=== PATIENT | male | born 1940 | race Caucasian/White ===

== ENCOUNTER 2019-12-01 15:02 | Emergency (ER) | payer MEDICARE, OTHER ==
[~2019-12-01] VITALS: Ht 177.8 cm; Wt 88.6 kg
[2019-12-01] MEDS ORDERED: NS IV 1000 ML 1,000 ML IV SCH ×2 (15:31→17:45)
[2019-12-01] MEDS ORDERED: ACETAMINOPHEN 325 MG TABLET PO ONE (15:45)
[2019-12-01] MEDS ORDERED: cefTRIAXone FOR IV USE 1,000 MG in WATER (STERILE) FOR INJECTION 10 ML IV ONE (15:45)
[2019-12-01 15:53] LABS: BACTERIA,URINE NEGATIVE /HPF; BILIRUBIN,URINE NEGATIVE (NEGATIVE); CLARITY,URINE CLEAR; COLOR,URINE YELLOW; GLUCOSE, URINE (UA) NEGATIVE (NEGATIVE); KETONES,URINE NEGATIVE (NEGATIVE); LEUKOCYTE ESTERASE ,URINE NEGATIVE (NEGATIVE); NITRITE,URINE NEGATIVE (NEGATIVE); PH,URINE 5.5 (5-9); PROTEIN,URINE NEGATIVE (NEGATIVE); RBC,URINE 0-2 /HPF; SQUAMOUS EPITHELIAL CELL,UR 0-2 /HPF; WBC,URINE RARE /HPF
--- NOTE | 2019-12-01 16:07 | Diagnostic Imaging Report ---
INDICATION: Weakness. Febrile. Covid 19 positive. EXAMINATION: Portable chest. FINDINGS: There is mild cardiomegaly. A pacemaker is present with the battery on the left. The lungs are well-aerated and clear. There are no infiltrates. No pneumothorax or pleural effusion. IMPRESSION: Mild cardiomegaly without evidence of acute change. No previous study for comparison. Dictated by: Dictated on workstation # [id number]
[2019-12-01 16:38] LABS: HEMATOCRIT 43 % (40-54); HEMOGLOBIN 13.8 G/DL (13.3-17.7); MEAN CORPUSCULAR HEMOGLOBIN 30 PG (25-34); MEAN CORPUSCULAR HGB CONC 32 G/DL (32-36); MEAN CORPUSCULAR VOLUME 93 FL (80-99); PLATELET COUNT 116 10^3/uL (130-400); RED CELL DISTRIBUTION WIDTH 13.4 % (10.0-14.5); WHITE BLOOD COUNT 14.7 10^3/uL (4.3-11.0)
[2019-12-01 16:39] LABS: BASOPHILS % (AUTO) 0 % (0-10); EOSINOPHILS % (AUTO) 0 % (0-10); LYMPHOCYTES # (AUTO) 0.8 X 10^3 (1.0-4.0); LYMPHOCYTES % (AUTO) 6 % (12-44); MONOCYTES % (AUTO) 7 % (0-12); NEUTROPHILS # (AUTO) 12.8 X 10^3 (1.8-7.8); NEUTROPHILS % (AUTO) 87 % (42-75)
[2019-12-01 16:56] LABS: BAND NEUTROPHILS 8 %; BASOPHILS % (MANUAL) 0 %; EOSINOPHILS % (MANUAL) 0 %; LYMPHOCYTES % (MANUAL) 5 %; MONOCYTES % (MANUAL) 4 %; NEUTROPHILS % (MANUAL) 83 %
[2019-12-01 17:05] LABS: CHLORIDE 102 MMOL/L (98-107); SODIUM 135 MMOL/L (135-145)
[2019-12-01 17:06] LABS: ALANINE AMINOTRANSFERASE 22 U/L (0-55); ALBUMIN 4.1 GM/DL (3.2-4.5); ALKALINE PHOSPHATASE 111 U/L (40-136); BILIRUBIN,TOTAL 1.6 MG/DL (0.1-1.0); BUN/CREATININE RATIO 22; CALCIUM 9.1 MG/DL (8.5-10.1); CARBON DIOXIDE 19 MMOL/L (21-32); CREATININE SERUM 0.85 MG/DL (0.60-1.30); GFR ESTIMATED > 60; GLUCOSE 113 MG/DL (70-105); TOTAL PROTEIN 7.1 GM/DL (6.4-8.2)
--- NOTE | 2019-12-01 17:25 | ED General ---
General Chief Complaint: Neurological Problems Stated Complaint: WEAKNESS History of Present Illness Date Seen by Provider: Dec 01, 2019 Time Seen by Provider: 15:30 Initial Comments The patient is an 79-year-old male with a history of hypertension, hy perlipidemia, coronary artery disease status post stenting. He has an ICD in place. He presents for evaluation of generalized weakness/fatigue in association with measured fevers at home over the last 2 days. Patient states he has just felt very fatigued over the last couple of days. He denies any other focal or specific symptoms and specifically denies nausea or vomiting, headache, focal or lateralizing weakness, numbness, tingling, neck stiffness/pain/meningismus, vision changes, shortness of breath or chest pain of any kind, abdominal pain, flank pain, back pain, dysuria or hematuria, changes in bowel habits. Patient is alert and oriented 4 and pleasantly and appropriately interactive and moves all extremities equally and is in absolutely no acute distress upon initial assessment here in the emergency department. Vital signs are appropriate here aside from fever with a measured rectal temperature of 38.9 Celsius. Patient is on a beta kanu so this would be expected to suppress a possible tachycardic response to infection. Allergies and Home Medications Allergies Coded Allergies: No Known Drug Allergies (Unverified , 12/01/19) Patient Home Medication List Home Medication List Reviewed: Yes Review of Systems Review of Systems Constitutional: see HPI All Other Systems Reviewed Negative Unless Noted: Yes (Negative excepted noted.) Past Dxhzrnl-Ncnstm-Qtyhrw Hx Past Med/Social Hx: Reviewed Nursing Past Med/Soc Hx Patient Social History Alcohol Use: Denies Use Recreational Drug Use: No Smoking Status: Former Smoker Type Used: Cigarettes Former Smoker, Quit: May 11, 1997 2nd Hand Smoke Exposure: No Recent Hopitalizations: No Physical Abuse: No Sexual Abuse: No Mistreated: No Fear: No Seasonal Allergies Seasonal Allergies: No Past Medical History Surgeries: Yes Cardiac Respiratory: No Cardiac: Yes Heart Attack, High Cholesterol, Hypertension Neurological: No Genitourinary: No Gastrointestinal: No Musculoskeletal: No Endocrine: No HEENT: No Cancer: No Psychosocial: No Integumentary: No Blood Disorders: No Family Medical History Reviewed Nursing Family Hx Physical Exam Vital Signs Capillary Refill : Height, Weight, BMI Height: '" Weight: lbs. oz. kg; BMI Method: General Appearance: No Apparent Distress Comments This is an elderly male appearing nontoxic and in no acute distress. Head is normocephalic and atraumatic. Neck is supple and nontender and patient is able to range his neck fully in all dimensions without discomfort or distress. Oropharynx is moist. Lungs are clear to auscultation at all stations. There is a normal S1 and S2 without rubs or gallops and capillary refill is appropriate, less than 2 seconds globally. Abdomen is soft, nontender and nondistended. Examination of the back reveals no erythema, warmth, swelling, tenderness, skin breakdown or other abnormalities. Skin is warm and dry without cyanosis, clubbing or edema. Psychiatrically, the patient demonstrates appropriate mood and affect and is alert. Neurologically, cranial nerves II through XII are intact and there are no lateralizing deficits noted. Speech is normal. Language is normal. Coordination is normal. There is no dysmetria with omlgcj-tw-gsde or qcfs-de-flqv bilaterally. Strength is 5 out of 5 in all joints of bilateral upper and lower extreme use. Sensation is intact to light touch in bilateral upper and lower extremities. Ambulation testing is deferred. The patient is alert and oriented 4. Examination of bilateral upper and lower extremities reveals no erythema, warmth, swelling, skin breakdown, tenderness or other acute abnormality; BUEs and BLEs are neurovascularly intact distally with 2+ pulses noted. Genitourinary examination is unremarkable. Focused Exam Lactate Level 12/01/19 16:50: Lactic Acid Level Laboratory Tests Test 12/01/19 16:50 Progress/Results/Core Measures Suspected Sepsis SIRS Temperature: Pulse: Respiratory Rate: Laboratory Tests 12/01/19 16:25: White Blood Count 14.7H Blood Pressure / Mean: 12/01/19 16:50: Laboratory Tests 12/01/19 16:25: Creatinine 0.85, Platelet Count 116L, Total Bilirubin 1.6H Results/Orders Lab Results Laboratory Tests Test 12/01/19 15:15 12/01/19 16:08 12/01/19 16:25 12/01/19 16:50 Range/Units Urine Color YELLOW Urine Clarity CLEAR Urine pH 5.5 5-9 Urine Specific [place] 1.025 H 1.016-1.022 Urine Protein NEGATIVE NEGATIVE Urine Glucose (UA) NEGATIVE NEGATIVE Urine Ketones NEGATIVE NEGATIVE Urine Nitrite NEGATIVE NEGATIVE Urine Bilirubin NEGATIVE NEGATIVE Urine Urobilinogen 0.2 < = 1.0 MG/DL Urine Leukocyte Esterase NEGATIVE NEGATIVE Urine RBC (Auto) 2+ H NEGATIVE Urine RBC 0-2 /HPF Urine WBC RARE /HPF Urine Squamous Epithelial Cells 0-2 /HPF Urine Crystals NONE /LPF Urine Bacteria NEGATIVE /HPF Urine Casts NONE /LPF Urine Mucus SMALL H /LPF Urine Culture Indicated NO White Blood Count 14.7 H 4.3-11.0 10^3/uL Red Blood Count 4.57 4.35-5.85 10^6/uL Hemoglobin 13.8 13.3-17.7 G/DL Hematocrit 43 40-54 % Mean Corpuscular Volume 93 80-99 FL Mean Corpuscular Hemoglobin 30 25-34 PG Mean Corpuscular Hemoglobin Concent 32 32-36 G/DL Red Cell Distribution Width 13.4 10.0-14.5 % Platelet Count 116 L 130-400 10^3/uL Mean Platelet Volume 12.0 H 7.4-10.4 FL Neutrophils (%) (Auto) 87 H 42-75 % Lymphocytes (%) (Auto) 6 L 12-44 % Monocytes (%) (Auto) 7 0-12 % Eosinophils (%) (Auto) 0 0-10 % Basophils (%) (Auto) 0 0-10 % Neutrophils # (Auto) 12.8 H 1.8-7.8 X 10^3 Lymphocytes # (Auto) 0.8 L 1.0-4.0 X 10^3 Monocytes # (Auto) 1.0 0.0-1.0 X 10^3 Eosinophils # (Auto) 0.0 0.0-0.3 10^3/uL Basophils # (Auto) 0.0 0.0-0.1 10^3/uL Neutrophils % (Manual) 83 % Lymphocytes % (Manual) 5 % Monocytes % (Manual) 4 % Eosinophils % (Manual) 0 % Basophils % (Manual) 0 % Band Neutrophils 8 % Sodium Level 135 135-145 MMOL/L Potassium Level 4.0 3.6-5.0 MMOL/L Chloride Level 102 98-107 MMOL/L Carbon Dioxide Level 19 L 21-32 MMOL/L Anion Gap 14 5-14 MMOL/L Blood Urea Nitrogen 19 H 7-18 MG/DL Creatinine 0.85 0.60-1.30 MG/DL Estimat Glomerular Filtration Rate > 60 BUN/Creatinine Ratio 22 Glucose Level 113 H 70-105 MG/DL Calcium Level 9.1 8.5-10.1 MG/DL Corrected Calcium 9.0 8.5-10.1 MG/DL Total Bilirubin 1.6 H 0.1-1.0 MG/DL Aspartate Amino Transf (AST/SGOT) 34 5-34 U/L Alanine Aminotransferase (ALT/SGPT) 22 0-55 U/L Alkaline Phosphatase 111 40-136 U/L Troponin I < 0.30 <0.30 NG/ML Total Protein 7.1 6.4-8.2 GM/DL Albumin 4.1 3.2-4.5 GM/DL My Orders Orders - MAYNOR RAMSEY MD Cbc With Automated Diff (12/01/19 15:31) Comprehensive Metabolic Panel (12/01/19 15:31) Troponin I Fs (12/01/19 15:31) Ekg Tracing (12/01/19 15:31) Chest 1 View Ap/Pa Only (12/01/19 15:31) Lactic Acid Analyzer (12/01/19 15:31) Blood Culture (12/01/19 15:31) Ua Culture If Indicated (12/01/19 15:31) Coronavirus Sars-Cov-2 So 2018 (12/01/19 15:31) Ed Iv/Invasive Line Start (12/01/19 15:31) Ns Iv 1000 Ml (Sodium Chloride 0.9%) (12/01/19 15:31) Acetaminophen Tablet/Caplet (Tylenol T (12/01/19 15:45) Ceftriaxone For Iv Use (Rocephin For I (12/01/19 15:45) Manual Differential (12/01/19 16:25) Blood Culture (12/01/19 17:01) Vital Signs/I&O Capillary Refill : Progress Note : Time: 17:26 Progress Note Well-appearing but rather comorbid community dwelling male without hospital associated infection risk factors who presents for 2 days of generalized weakness and fatigue in association with fevers at home. No clear focal symptoms to suggest a source for infection. Patient does have a leukocytosis to 15,000 and I suspect he would be tachycardic as well as febrile if not beta blocked. Have covered for sepsis with a dose of Rocephin after blood and urine cultures and an IV fluid bolus. Patient does seem and in medically stable and resting comfortably upon reassessment. Given age, comorbidities and likely sepsis, will require admission. Patient and family request that he be admitted to [facility] as that is closer to their house and then [facility]. The patient is therefore graciously accepted in transfer for admission to that facility by Dr. Dodson. Patient has been swabbed for COVID, though no clear respiratory symptoms to suggest COVID as the primary process at this time. ECG EKG : Comment Sinus rhythm, rate 60, no acute ST elevation or depression, WI 172, QRS 112, QTC 420, EP interpretation. Diagnostic Imaging Comments EXAMINATION: Portable chest. FINDINGS: There is mild cardiomegaly. A pacemaker is present with the battery on the left. The lungs are well-aerated and clear. There are no infiltrates. No pneumothorax or pleural effusion. IMPRESSION: Mild cardiomegaly without evidence of acute change. No previous study for comparison. Dictated on workstation # [id number] Departure Impression Primary Impression: Sepsis Additional Impressions: Fever Other fatigue Disposition: XFER T-[facility] Condition: Stable Transfer Transfer Reason: Patient preference Transfer Progress Notes Patient and his family understand that we have the necessary services to take care of him at [facility]. They continue to request [facility] as it is closer to their house. Therefore, the patient is graciously accepted in transfer to that facility by Dr. Dodson. Transfer Facility: [facility] Method of Transfer: EMS MAYNOR RAMSEY MD Dec 01, 2019 17:25
--- OUTSIDE RECORDS SUMMARY | 2019-12-01 17:55 | XMS REPORT ---
Author Author Christiano CARTER Organization [facility] Address [address] [address] Care Team Providers Care Master Pilot Name Role Phone MORRIS CARTER Unavailable PROBLEMS Type Condition ICD9-CM Code ZXP99-MP Code Onset Dates Condition S tatus SNOMED Code Problem Essential hypertension I10 Active 08221213 Problem Acquired hypothyroidism E03.9 Active 400023870 Problem Hypercholesterolemia E78.00 Active 50184044 Problem Chronic systolic (congestive) heart failure I50.22 Active 780385026 Problem terminal gauger (current) use of 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 Z79.01 Active 369099390 Problem Paroxysmal atrial fibrillation I48.0 Active 334401912 Problem Pure hypercholesterolemia E78.00 Acti ve 718502619 Problem 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 903025569 Problem Obstructive sleep apnea (adult) (pediatric) G47.33 Active 01977753 Problem Prostate CA C61 Active 94473732 3 ALLERGIES No Information ENCOUNTERS Encounter Location Date Diagnosis [place] [address] [place], [place] [id number] [place] [phone] September, [place] [address] [place] [phone] Jul, [place] [address] [place] [phone] Jul, USP (current) use of anticoagulant s Z79.01 [place] [address] [place] [phone] Jul, Encounter for Medicare annual wellness e xam Z00.00 ; Essential hypertension I10 ; Hypercholesterolemia E78.00 ; Obstructive sleep apnea (adult) (pediatric) G47.33 ; Prostate CA C61 ; 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 [address] [facility] [id number] [place] [phone] Jun, [facility] [address] [place], [place] [id number] [place] [phone] Jun, [place] [address] [place] [id number] [place] [phone] Jun, Cellulitis of left lower extremity L03.1 16 and USP (current) use of 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 Z79.01 [place] [address] [place] [id number] [place] [phone] 13 May, 2019 Pain in right hip M25.551 [place] [address] [place] [id number] [place] [phone] 10 May, 2019 Pain in right hip M25.551 ; Closed fract ure of one rib of left side, initial encounter S22.32XA and Pain in left hip M25.552 [facility] [address] [id number] [place] [address] 09 May, 2019 Hip pain M25.559 and Rib pain R07.81 [place] [address] [place], [place] [id number] [place] [phone] May, Rib pain R07.81 and Hip pain M25.559 [place] [address] [place], [place] [id number] [place] [phone] Apr, [place] [address] [place] [id number] [place] [phone] Apr, USP (current) use of anticoagulant s Z79.01 [place] [address] [place] [id number] [place] [phone] Apr, [place] [address] [place] [phone] Apr, Obstructive sleep apnea (adult) (pediatr ic) G47.33 and 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 [facility] [address] [place] [phone] Mar, Essential hypertension I10 [facility] [address] [place] [phone] Mar, Prostate CA C61 and USP (current) use of 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 Z79.01 [facility] [address] [place] [address], [place] [address] Feb, terminal gauger (current) use of anticoagulant s Z79.01 [place] [address] [place] [phone] Feb, terminal gauger (current) use of anticoagulant s Z79.01 [facility] [address] [place] [address], [place] [address] Feb, [facility] [address] [place] [address], [place] [address] Jan, USP (current) use of anticoagulant s Z79.01 [facility] [address] [place] [phone] Jan, [facility] [address] [place] [address] Jan, High risk medication use Z79.899 ; Obstr uctive sleep apnea (adult) (pediatric) G47.33 ; terminal gauger (current) use of 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 Z79.01 and Acquired hypothyroidism E03.9 [facility] [address] [place] [phone] Dec, terminal gauger (current) use of anticoagulant s Z79.01 [facility] [address] [place] [phone] Nov, [facility] [address] [facility] [address] [place] [phone] Nov, [facility] [id number] [place] [phone] 15 Nov, 2018 USP (current) use of anticoagulant s Z79.01 [facility] [id number] [place] [phone] 19 Oct, 2018 [facility] [id number] [place] [phone] 12 Oct, 2018 Obstructive sleep apnea (adult) (pediatr ic) G47.33 [facility] [id number] [place] [phone] 11 Oct, 2018 USP (current) use of anticoagulant s Z79.01 [facility] [address] [place] [phone] 10 Oct, 2018 HLD (hyperlipidemia) E78.5 and Fatigue R 53.83 [place] [address] [place] [phone] 07 Oct, 2018 Fatigue R53.83 ; HLD (hyperlipidemia) E7 8.5 ; 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 and Obstructive sleep apnea (adult) (pediatric) G47.33 [facility] [id number] [place] [phone] 04 Oct, 2018 USP (current) use of anticoagulant s Z79.01 [facility] [id number] [place] [phone] September, [facility] [id number] [place] [phone] September, [facility] [id number] [place] [phone] September, [facility] [address] [place] [address] September, terminal gauger (current) use of anticoagulant s Z79.01 [facility] [id number] [place] [phone] Aug, terminal gauger (current) use of anticoagulant s Z79.01 [facility] [address] [id number] [place] [address] Aug, [facility] [id number] [place] [address], [place] [address] Aug, USP (current) use of anticoagulant s Z79.01 [facility] [address] [id number] [place] [address] Aug, terminal gauger (current) use of anticoagulant s Z79.01 [facility] [id number] [place] [address], [place] [address] Aug, terminal gauger (current) use of anticoagulant s Z79.01 [facility] [id number] [place] [address], [place] [address] Jul, terminal gauger (current) use of anticoagulant s Z79.01 [facility] [address] [id number] [place] [address] Jul, terminal gauger (current) use of anticoagulant s Z79.01 [facility] [id number] [place] [address], [place] [address] Jul, terminal gauger (current) use of anticoagulant s Z79.01 [facility] [id number] [place] [address], [place] [address] Jul, terminal gauger (current) use of anticoagulant s Z79.01 [facility] [address] [id number] [place] [address] Jul, USP (current) use of anticoagulant s Z79.01 [facility] [address] [id number] [place] [address] Jul, High risk medication use Z79.899 and Jonathan g term (current) use of 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 Z79.01 [facility] [address] [id number] [place] [address] Jul, [facility] [id number] [place] [address], [place] [address] Jul, [facility] [id number] [place] [address], [place] [address] Jul, [facility] [id number] [place] [phone] Jun, terminal gauger (current) use of anticoagulant s Z79.01 [facility] [id number] [place] [phone] Jun, terminal gauger (current) use of anticoagulant s Z79.01 [facility] [id number] [place] [address], [place] [address] Jun, terminal gauger (current) use of anticoagulant s Z79.01 [facility] [id number] [place] [address], [place] [address] Jun, [facility] [id number] [place] [phone] Jun, [facility] [id number] [place] [address], [place] [id number] May, USP (current) use of anticoagulant s Z79.01 [facility] [id number] [place] [address], [place] [address] May, Essential hypertension I10 ; Acquired hy pothyroidism E03.9 and Pure hypercholesterolemia E78.00 [facility] [id number] [place] [phone] May, USP (current) use of anticoagulant s Z79.01 [facility] [id number] [place] [phone] May, terminal gauger (current) use of anticoagulant s Z79.01 ; Acquired hypothyroidism E03.9 ; Hypercholesterolemia E78.00 and Essential hypertension I10 [facility] [id number] [place] [address] May, terminal gauger (current) use of anticoagulant s Z79.01 [facility] [id number] [place] [phone] May, USP (current) use of anticoagulant s Z79.01 IMMUNIZATIONS No Known Immunizations SOCIAL HISTORY Never Assessed REASON FOR VISIT INR PLAN OF CARE VITAL SIGNS MEDICATIONS Unknown Medications RESULTS Name Result Date Reference Range INR (IN HOUSE) INR 3.6 1.10 - 3.30 PREVIOUS INR 2.8 CURRENT COUMADIN DOSE NEW COUMADIN DOSE Lot # [id number] Exp date 08/09/2019 PROCEDURES Procedure Date Ordered Result Body Site PROTHROMBIN TIME August 09, 2018 INSTRUCTIONS MEDICATIONS ADMINISTERED No Known Medications MEDICAL (GENERAL) HISTORY Type Description Date Medical History hypertension Medical History prostate cancer Medical History hyperlipidemia Medical History CAD
--- OUTSIDE RECORDS SUMMARY | 2019-12-01 17:55 | XMS REPORT ---
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 Z79.01 Active 514964368 Problem Paroxysmal atrial fibrillation I48.0 Active 380597582 Problem Pure hypercholesterolemia E78.00 Acti ve 057672902 Problem 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 217792342 Problem Obstructive sleep apnea (adult) (pediatric) G47.33 Active 87177468 Problem Prostate CA C61 Active 19178241 3 ALLERGIES No Information ENCOUNTERS Encounter Location Date Diagnosis [place] [address] [place] [address] 14634-701 9 September, [facility] [address] [place] [address] [phone] 9 Jul, Encounter for Medicare annual wellness exam Z00.00 ; Essential hypertension I10 ; Hypercholesterolemia E78.00 ; Obstructive sleep apnea (adult) (pediatric) G47.33 ; Prostate CA C61 ; 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 [id number] [place] [address] Jun, [place] [address] [place] [address] [phone] 9 Jun, [place] [address] [place], [place] [id number] [place] [address] [phone] 9 Jun, Cellulitis of left lower extremity L03.116 and halfway (current) use of 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 Z79.01 [place] [address] [place] [address] 78138-052 9 13 May, 2019 Pain in right hip M25.551 [place] [address] [place] [address] 23145-046 9 10 May, 2019 Pain in right hip M25.551 ; Closed fracture of one rib of left side, initial encounter S22.32XA and Pain in left hip M25.552 [facility] [address] [facility] [place] [id number] [place] [address] May, Hip pain M25.559 and Rib pain R07.81 [place] [address] [place], [place] [id number] [place] [address] 37546-250 9 May, Rib pain R07.81 and Hip pain M25.559 [place] [address] [place] [address] 57494-703 9 Apr, [place] [address] [place] [address] 42192-756 9 Apr, halfway (current) use of 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 Z79.01 [place] [address] [place] [address] [phone] 9 Apr, [place] [address] [place] [address] 76166-920 9 Apr, Obstructive sleep apnea (adult) (pediatric) G47.33 and 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 [place] [address] [place] [address] 61988-960 9 Mar, Essential hypertension I10 [place] [address] [place] [address] 17844-386 9 Mar, Prostate CA C61 and halfway (current) use of 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 Z79.01 [place] [address] [place] [address] [phone] 9 Feb, director 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 care (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) use of 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 Z79.01 [place] [address] [place] [address] [phone] 9 Feb, halfway (current) use of 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 Z79.01 [place] [address] [place] [address] 53081-831 9 Feb, [place] [address] [place] [address] 36591-434 9 Jan, director long term care (current) use of 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 Z79.01 [place] [address] [place] [address] 57270-496 9 Jan, [place] [address] [place] [address] [phone] 9 Jan, High risk medication use Z79.899 ; Obstructive sleep apnea (adult) (pediatric) G47.33 ; halfway (current) use of 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 Z79.01 and Acquired hypothyroidism E03.9 [place] [address] [place] [address] [phone] 9 Dec, director long term care (current) use of 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 Z79.01 [place] [address] [place] [address] [phone] 9 Nov, [place] [address] [place] [address] 37164-785 9 Nov, [place] [address] [place] [address] [phone] 9 Nov, director long term care (current) use of 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 Z79.01 [place] [address] [place] [address] 39815-316 9 Oct, [place] [address] [place] [address] [phone] 9 Oct, Obstructive sleep apnea (adult) (pediatric) G47.33 [facility] [address] [place] [address] 36432-964 9 11 Oct, 2018 halfway (current) use of 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 Z79.01 [facility] [address] [place] [address] 34284-283 9 10 Oct, 2018 HLD (hyperlipidemia) E78.5 and Fatigue R53.83 [facility] [address] [place] [address] 26510-608 9 07 Oct, 2018 Fatigue R53.83 ; HLD (hyperlipidemia) E78.5 ; 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 and Obstructive sleep apnea (adult) (pediatric) G47.33 [place] [address] [place] [address] 04659-935 9 Oct, halfway (current) use of 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 Z79.01 [facility] [address] [place] [address] [phone] 9 September, [facility] [address] [place] [address] [phone] 9 September, [facility] [address] [place] [address] 39121-629 9 September, [place] [address] [place] [address] 17980-257 9 September, director long term care (current) use of 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 Z79.01 [facility] [address] [place] [address] 45426-264 9 Aug, halfway (current) use of 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 Z79.01 [facility] [address] [place] [address] 43993-847 9 Aug, [facility] [address] [place] [address] 43156-972 9 Aug, halfway (current) use of 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 Z79.01 [facility] [address] [place] [address] [phone] 9 Aug, director long term care (current) use of 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 Z79.01 [facility] [address] [place] [address] [phone] 9 Aug, halfway (current) use of 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 Z79.01 [facility] [address] [place] [id number] [place] [address] [phone] 9 Jul, director long term care (current) use of 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 Z79.01 [facility] [address] [place] [address] 01809-173 9 Jul, halfway (current) use of 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 Z79.01 [facility] [address] [place] [address] [phone] 9 Jul, director long term care (current) use of 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 Z79.01 [facility] [address] [place] [id number] [place] [address] [phone] 9 Jul, director long term care (current) use of 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 Z79.01 [facility] [address] [place] [address] 32116-377 9 Jul, halfway (current) use of 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 Z79.01 [facility] [address] [place] [address] [phone] 9 Jul, High risk medication use Z79.899 and director long term care (current) use of 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 Z79.01 [facility] [address] [place] [address] [phone] 9 Jul, [facility] [address] [place] [address] [phone] 9 Jul, [facility] [address] [place] [address] 86401-919 9 Jul, [facility] [address] [place] [address] 23434-567 9 Jun, halfway (current) use of 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 Z79.01 [facility] [address] [place] [address] 24306-411 9 Jun, halfway (current) use of 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 Z79.01 [facility] [address] [place] [id number] [place] [address] [phone] 9 Jun, director long term care (current) use of 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 Z79.01 [facility] [address] [place] [address] [place] [address]-059 9 Jun, [facility] [address] [place] [address] [phone] 9 Jun, [place] [address] [place] [address] 9 May, director long term care (current) use of 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 Z79.01 [place] [address] [place] [address] 9 May, Essential hypertension I10 ; Acquired hypothyroidism E03.9 and Pure hypercholesterolemia E78.00 [place] [address] [place] [address] 9 May, halfway (current) use of 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 Z79.01 [place] [address] [place] [address] 9 May, director long term care (current) use of 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 Z79.01 ; Acquired hypothyroidism E03.9 ; Hypercholesterolemia E78.00 and Essential hypertension I10 [place] [address] [place] [address] [phone] 9 May, halfway (current) use of 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 Z79.01 [place] [address] [place] [address] 9 May, director long term care (current) use of 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 Z79.01 IMMUNIZATIONS No Known Immunizations SOCIAL HISTORY Never Assessed REASON FOR VISIT INR PLAN OF CARE VITAL SIGNS MEDICATIONS Unknown Medications RESULTS Name Result Date Reference Range INR (IN HOUSE) 2018-08-06 INR 4.1 1.10 - 3.30 PREVIOUS INR 2.8 CURRENT COUMADIN DOSE NEW COUMADIN DOSE Lot # [id number] Exp date 08/09/2019 PROCEDURES Procedure Date Ordered Result Body Site PROTHROMBIN TIME August 06, 2018 INSTRUCTIONS MEDICATIONS ADMINISTERED No Known Medications MEDICAL (GENERAL) HISTORY Type Description Date Medical History hypertension Medical History prostate cancer Medical History hyperlipidemia Medical History CAD
--- OUTSIDE RECORDS SUMMARY | 2019-12-01 17:55 | XMS REPORT ---
Author Author Christiano CARTER Organization [facility] Address [address] [address] Care Team Providers Care Hemstitcher Name Role Phone MORRIS CARTER Unavailable PROBLEMS Type Condition ICD9-CM Code VEX91-SS Code Onset Dates Condition S tatus SNOMED Code Problem prison (current) use of 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 Z79.01 Active 003485439 Problem Essential hypertension I10 Active 13682137 Problem Obstructive sleep apnea (adult) (pediatric) G47.33 Active 37953574 Problem Prostate CA C61 Active 80266544 3 Problem Acquired hypothyroidism E03.9 Active 094594025 Problem Hypercholesterolemia E78.00 Active 23850118 Problem Pure hypercholesterolemia E78.00 Acti ve 875213561 Problem 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 020939790 ALLERGIES No Information ENCOUNTERS Encounter Location Date Diagnosis [place] [address] [place] [address] 34302-798 9 Jul, [place] [address] [place] [address] 01601-589 9 13 May, 2019 Pain in right hip M25.551 [place] [address] [place] [address] 25590-957 9 10 May, 2019 Pain in right hip M25.551 ; Closed fracture of one rib of left side, initial encounter S22.32XA and Pain in left hip M25.552 [facility] [address] [facility] [id number] [place] [address] May, Hip pain M25.559 and Rib pain R07.81 [place] [address] [place] [address] 24930-874 9 08 May, 2019 Rib pain R07.81 and Hip pain M25.559 [place] [address] [place] [address] 88915-171 9 Apr, [place] [address] [place] [address] 86703-532 9 Apr, prison (current) use of 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 Z79.01 [place] [address] [place] [address] 63871-132 9 Apr, [place] [address] [place] [address] 29364-964 9 Apr, Obstructive sleep apnea (adult) (pediatric) G47.33 and 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 [place] [address] [place] [address] [phone] 9 Mar, Essential hypertension I10 [place] [address] [place] [address] 46078-920 9 Mar, Prostate [place] C61 and lobsterman (current) use of 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 Z79.01 [place] [address] [place] [address] 56646-962 9 Feb, prison (current) use of 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 Z79.01 [place] [address] [place] [address] 76546-253 9 Feb, prison (current) use of 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 Z79.01 [place] [address] [place] [address] [phone] 9 Feb, [place] [address] [place] [address] 14237-633 9 Jan, prison (current) use of 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 Z79.01 [place] [address] [place] [address] 46870-035 9 Jan, [place] [address] [place] [address] 68447-642 9 Jan, High risk medication use Z79.899 ; Obstructive sleep apnea (adult) (pediatric) G47.33 ; lobsterman (current) use of 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 Z79.01 and Acquired hypothyroidism E03.9 [place] [address] [place] [address] 22343-612 9 Dec, prison (current) use of 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 Z79.01 [facility] [address] [place] [address] [phone] 9 Nov, [facility] [address] [place] [address] 46809-633 9 Nov, [facility] [address] [place] [address] 53644-889 9 Nov, prison (current) use of 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 Z79.01 [facility] [address] [place] [address] 85440-273 9 Oct, [facility] [address] [place] [address] 22602-645 9 Oct, Obstructive sleep apnea (adult) (pediatric) G47.33 [place] [address] [place] [address] 80352-193 9 11 Oct, 2018 lobsterman (current) use of 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 Z79.01 [facility] [address] [place] [address] 84710-205 9 10 Oct, 2018 HLD (hyperlipidemia) E78.5 and Fatigue R53.83 [place] [address] [place] [address] 47561-966 9 07 Oct, 2018 Fatigue R53.83 ; HLD (hyperlipidemia) E78.5 ; 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 and Obstructive sleep apnea (adult) (pediatric) G47.33 [place] [address] [place] [address] 68421-886 9 Oct, lobsterman (current) use of 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 Z79.01 [facility] [address] [place] [address] [phone] 9 September, [place] [address] [place] [address] 07439-593 9 September, [place] [address] [place] [address] 30785-546 9 September, [place] [address] [place] [address] 54776-826 9 September, lobsterman (current) use of 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 Z79.01 [facility] [address] [place], [place] [address] [place] [address] 51307-657 9 Aug, lobsterman (current) use of 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 Z79.01 [facility] [address] [place] [address] [phone] 9 Aug, [facility] [address] [place] [address] 73589-506 9 Aug, prison (current) use of 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 Z79.01 [facility] [address] [place] [address] 30478-768 9 Aug, lobsterman (current) use of 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 Z79.01 [facility] [address] [place] [address] 36218-385 9 Aug, lobsterman (current) use of 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 Z79.01 [facility] [address] [place] [address] 91678-017 9 Jul, lobsterman (current) use of 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 Z79.01 [facility] [address] [place] [address] [phone] 9 Jul, lobsterman (current) use of 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 Z79.01 [facility] [address] [place] [address] 92822-169 9 Jul, prison (current) use of 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 Z79.01 [facility] [address] [place] [address] 72349-200 9 Jul, prison (current) use of 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 Z79.01 [facility] [address] [place] [address] 35797-225 9 Jul, prison (current) use of 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 Z79.01 [facility] [address] [place] [address] 65170-461 9 Jul, High risk medication use Z79.899 and prison (current) use of 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 Z79.01 [facility] [address] [place] [address] 36292-273 9 Jul, [facility] [address] [place] [address] [phone] 9 Jul, [facility] [address] [place] [address] 80680-208 9 Jul, [facility] [address] [place] [address] 63335-798 9 Jun, lobsterman (current) use of 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 Z79.01 [facility] [address] [place] [address] 16383-580 9 Jun, prison (current) use of 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 Z79.01 [facility] [address] [place] [address] 89770-061 9 Jun, lobsterman (current) use of 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 Z79.01 [facility] [address] [place] [address] 08544-981 9 Jun, [facility] [address] [place] [address] [phone] 9 Jun, [facility] [address] [place] [address] 06834-480 9 May, prison (current) use of 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 Z79.01 [facility] [address] [place] [address] [phone] 9 May, Essential hypertension I10 ; Acquired hypothyroidism E03.9 and Pure hypercholesterolemia E78.00 [place] [address] [place] [address] 46362-047 9 May, prison (current) use of 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 Z79.01 [place] [address] [place] [address] 44802-010 9 May, prison (current) use of 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 Z79.01 ; Acquired hypothyroidism E03.9 ; Hypercholesterolemia E78.00 and Essential hypertension I10 [place] [address] [place] [address] 04645-068 9 May, lobsterman (current) use of 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 Z79.01 [facility] [address] [place] [address] [phone] 9 May, lobsterman (current) use of 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 Z79.01 IMMUNIZATIONS No Known Immunizations SOCIAL HISTORY Never Assessed REASON FOR VISIT INR PLAN OF CARE VITAL SIGNS MEDICATIONS Unknown Medications RESULTS Name Result Date Reference Range INR (IN HOUSE) INR 4.1 1.10 - 3.30 PREVIOUS INR 3.3 CURRENT COUMADIN DOSE NEW COUMADIN DOSE Lot # Exp date PROCEDURES Procedure Date Ordered Result Body Site PROTHROMBIN TIME August 02, 2018 INSTRUCTIONS MEDICATIONS ADMINISTERED No Known Medications MEDICAL (GENERAL) HISTORY Type Description Date Medical History hypertension Medical History prostate cancer Medical History hyperlipidemia Medical History CAD
--- OUTSIDE RECORDS SUMMARY | 2019-12-01 17:56 | XMS REPORT | Continuity of Care Document ---
Demographics x Preferred Language Unknown Marital Status Unknown Hinduism Affiliation Unknown Race Unknown Ethnic Group Unknown Author Organization Unknown Address Unknown Phone Unavailable Allergies There is no data. Medications There is no data. Problems There is no data. Procedures There is no data. Results Test Result Range TSH w/ FREE T4 - 10/18/18 09:13 TSH 3.01 mIU/L 0.40-4.50 T4, FREE 1.3 ng/dL 0.8-1.8 LIPID PANEL - 10/18/18 09:13 CHOLESTEROL, TOTAL 149 mg/dL <200 HDL CHOLESTEROL 73 mg/dL >40 TRIGLYCERIDES 50 mg/dL <150 LDL-CHOLESTEROL 64 mg/dL (calc) NRG CHOL/HDLC RATIO 2.0 (calc) <5.0 NON HDL CHOLESTEROL 76 mg/dL (calc) <130 CMP - 10/18/18 09:13 GLUCOSE 77 mg/dL 65-99 UREA NITROGEN (BUN) 18 mg/dL 7-25 CREATININE 0.86 mg/dL 0.70-1.11 eGFR NON-AFR. BELGIAN 82 mL/min/1.73m2 > OR = 60 eGFR 95 mL/min/1.73m2 > OR = 60 BUN/CREATININE RATIO NOT APPLICABLE (calc) 6-22 SODIUM 145 mmol/L 135-146 POTASSIUM 4.0 mmol/L 3.5-5.3 CHLORIDE 107 mmol/L 98-110 CARBON DIOXIDE 31 mmol/L 20-32 CALCIUM 9.0 mg/dL 8.6-10.3 PROTEIN, TOTAL 6.5 g/dL 6.1-8.1 ALBUMIN 4.1 g/dL 3.6-5.1 GLOBULIN 2.4 g/dL (calc) 1.9-3.7 ALBUMIN/GLOBULIN RATIO 1.7 (calc) 1.0-2. 5 BILIRUBIN, TOTAL 1.0 mg/dL 0.2-1.2 ALKALINE PHOSPHATASE 114 U/L 40-115 AST 26 U/L 10-35 ALT 16 U/L 9-46 CBC - 10/18/18 09:13 WHITE BLOOD CELL COUNT 6.4 Thousand/uL 3 .8-10.8 RED BLOOD CELL COUNT 4.70 Million/uL 4.2 0-5.80 HEMOGLOBIN 14.0 g/dL 13.2-17.1 HEMATOCRIT 42.9 % 38.5-50.0 MCV 91.3 fL 80.0-100.0 MCH 29.8 pg 27.0-33.0 MCHC 32.6 g/dL 32.0-36.0 RDW 12.7 % 11.0-15.0 PLATELET COUNT 165 Thousand/uL 140-400 MPV 11.8 fL 7.5-12.5 ABSOLUTE NEUTROPHILS 4154 cells/uL 1500- 7800 ABSOLUTE LYMPHOCYTES 1312 cells/uL 850-3 900 ABSOLUTE MONOCYTES 595 cells/uL 200-950 ABSOLUTE EOSINOPHILS 301 cells/uL 15-500 ABSOLUTE BASOPHILS 38 cells/uL 0-200 NEUTROPHILS 64.9 % NRG LYMPHOCYTES 20.5 % NRG MONOCYTES 9.3 % NRG EOSINOPHILS 4.7 % NRG BASOPHILS 0.6 % NRG PSA - 03/28/19 13:12 PSA, TOTAL 0.4 ng/mL < OR = 4.0 TSH w/ FREE T4 - 04/05/19 10:58 TSH 3.56 mIU/L 0.40-4.50 T4, FREE 1.0 ng/dL 0.8-1.8 LIPID PANEL - 04/05/19 10:58 CHOLESTEROL, TOTAL 160 mg/dL <200 HDL CHOLESTEROL 74 mg/dL >40 TRIGLYCERIDES 78 mg/dL <150 LDL-CHOLESTEROL 70 mg/dL (calc) NRG CHOL/HDLC RATIO 2.2 (calc) <5.0 NON HDL CHOLESTEROL 86 mg/dL (calc) <130 CMP - 04/05/19 10:58 GLUCOSE 86 mg/dL 65-99 UREA NITROGEN (BUN) 23 mg/dL 7-25 CREATININE 0.87 mg/dL 0.70-1.11 eGFR NON-AFR. BELGIAN 81 mL/min/1.73m2 > OR = 60 eGFR 94 mL/min/1.73m2 > OR = 60 BUN/CREATININE RATIO NOT APPLICABLE (calc) 6-22 SODIUM 143 mmol/L 135-146 POTASSIUM 4.3 mmol/L 3.5-5.3 CHLORIDE 107 mmol/L 98-110 CARBON DIOXIDE 31 mmol/L 20-32 CALCIUM 9.3 mg/dL 8.6-10.3 PROTEIN, TOTAL 6.3 g/dL 6.1-8.1 ALBUMIN 4.2 g/dL 3.6-5.1 GLOBULIN 2.1 g/dL (calc) 1.9-3.7 ALBUMIN/GLOBULIN RATIO 2.0 (calc) 1.0-2. 5 BILIRUBIN, TOTAL 0.8 mg/dL 0.2-1.2 ALKALINE PHOSPHATASE 98 U/L 40-115 AST 36 U/L 10-35 ALT 44 U/L 9-46 CBC w/MANUAL DIFF - 04/05/19 10:58 WHITE BLOOD CELL COUNT 6.2 Thousand/uL 3 .8-10.8 RED BLOOD CELL COUNT 4.14 Million/uL 4.2 0-5.80 HEMOGLOBIN 12.5 g/dL 13.2-17.1 HEMATOCRIT 38.7 % 38.5-50.0 MCV 93.5 fL 80.0-100.0 MCH 30.2 pg 27.0-33.0 MCHC 32.3 g/dL 32.0-36.0 RDW 12.1 % 11.0-15.0 PLATELET COUNT 165 Thousand/uL 140-400 MPV 12.5 fL 7.5-12.5 ABSOLUTE NEUTROPHILS 4117 cells/uL 1500- 7800 ABSOLUTE MONOCYTES 347 cells/uL 200-950 ABSOLUTE EOSINOPHILS 229 cells/uL 15-500 ABSOLUTE BASOPHILS 0 cells/uL 0-200 NEUTROPHILS 66.4 % NRG LYMPHOCYTES 22.4 % NRG MONOCYTES 5.6 % NRG EOSINOPHILS 3.7 % NRG BASOPHILS 0 % NRG ABSOLUTE BAND NEUTROPHILS 118 cells/uL 0 -750 ABSOLUTE LYMPHOCYTES 1389 cells/uL 850-3 900 BAND NEUTROPHILS 1.9 % NRG PLATELET ESTIMATION ADEQUATE ADEQUATE CBC MORPHOLOGY NORMAL CMP - 09/09/19 12:08 GLUCOSE 88 mg/dL 65-99 UREA NITROGEN (BUN) 21 mg/dL 7-25 CREATININE 0.96 mg/dL 0.70-1.11 eGFR NON-AFR. [place] 74 mL/min/1.73m2 > OR = 60 eGFR 86 mL/min/1.73m2 > OR = 60 BUN/CREATININE RATIO NOT APPLICABLE (calc) 6-22 SODIUM 146 mmol/L 135-146 POTASSIUM 4.0 mmol/L 3.5-5.3 CHLORIDE 109 mmol/L 98-110 CARBON DIOXIDE 30 mmol/L 20-32 CALCIUM 8.7 mg/dL 8.6-10.3 PROTEIN, TOTAL 6.1 g/dL 6.1-8.1 ALBUMIN 4.2 g/dL 3.6-5.1 GLOBULIN 1.9 g/dL (calc) 1.9-3.7 ALBUMIN/GLOBULIN RATIO 2.2 (calc) 1.0-2. 5 BILIRUBIN, TOTAL 1.0 mg/dL 0.2-1.2 ALKALINE PHOSPHATASE 103 U/L 35-144 AST 30 U/L 10-35 ALT 23 U/L 9-46 CBC w/MANUAL DIFF - 09/09/19 12:08 WHITE BLOOD CELL COUNT 5.6 Thousand/uL 3 .8-10.8 RED BLOOD CELL COUNT 4.18 Million/uL 4.2 0-5.80 HEMOGLOBIN 12.8 g/dL 13.2-17.1 HEMATOCRIT 39.3 % 38.5-50.0 MCV 94.0 fL 80.0-100.0 MCH 30.6 pg 27.0-33.0 MCHC 32.6 g/dL 32.0-36.0 RDW 12.8 % 11.0-15.0 PLATELET COUNT 145 Thousand/uL 140-400 MPV 12.0 fL 7.5-12.5 ABSOLUTE NEUTROPHILS 3192 cells/uL 1500- 7800 ABSOLUTE MONOCYTES 588 cells/uL 200-950 ABSOLUTE EOSINOPHILS 297 cells/uL 15-500 ABSOLUTE BASOPHILS 0 cells/uL 0-200 NEUTROPHILS 57.0 % NRG LYMPHOCYTES 26.3 % NRG MONOCYTES 10.5 % NRG EOSINOPHILS 5.3 % NRG BASOPHILS 0 % NRG ABSOLUTE BAND NEUTROPHILS 50 cells/uL 0- 750 ABSOLUTE LYMPHOCYTES 1473 cells/uL 850-3 900 BAND NEUTROPHILS 0.9 % NRG PLATELET ESTIMATION ADEQUATE ADEQUATE CBC MORPHOLOGY NORMAL Encounters ACCT No. Visit Date/Time Discharge Status Pt. Type Provider Facility Loc./Unit Complaint [id number] 11/22/2019 13:40:00 11/22/2019 23:59: 59 [facility] [id number] 09/09/2019 12:00:00 Document Registration [id number] 04/05/2019 10:40:00 Document Registration [id number] 03/28/2019 13:00:00 Document Registration [id number] 10/18/2018 09:20:00 Document Registration
--- OUTSIDE RECORDS SUMMARY | 2019-12-01 17:56 | XMS REPORT ---
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 650793352 Problem Hypercholesterolemia E78.00 Active 77289035 Problem Essential hypertension I10 Active 47258967 Problem Acquired hypothyroidism E03.9 Active 840137559 Problem Pure hypercholesterolemia E78.00 Acti ve [id number] ALLERGIES No Information ENCOUNTERS Encounter Location Date Diagnosis [address] [address] [address] Dec [facility]DC (current) use of 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 Z79.[address] [address] [address] [address] Nov [facility]DC (current) use of 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 Z79.[address] [address] [address] Oct Obstructive sleep apnea (adult) (pediatric) G47.[address] [address] Oct [facility]DC (current) use of 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 Z79.01 [address] [place] [address] 10 Oct HLD (hyperlipidemia) E78.5 and Fatigue R53.83 [place] [address] [place] [address] 07 Oct Fatigue R53.83 ; HLD (hyperlipidemia) E78.5 ; 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 and Obstructive sleep apnea (adult) (pediatric) G47.33 [place] [address] [place] [address] 04 Oct [facility]DC (current) use of 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 Z79.01 [place] [address] [place] [address], [place] [address] September [place] [address] [place] [address] September [place] [address] [place] [address] September [place] [address] [place] [address] September 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 [place] [address] [place] [address] Aug [facility]DC (current) use of 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 Z79.01 [place] [address] [place] [address], [place] [address] Aug [place] [address] [place] [address] Aug [facility]DC (current) use of 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 Z79.01 [place] [address] [place] [address] Aug 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 [place] [address] [place] [address] Aug [facility]DC (current) use of 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 Z79.01 [place] [address] [place] [address] Jul [facility]DC (current) use of 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 Z79.01 [place] [address] [place] [address] Jul 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 [place] [address] [place] [address] 19 Jul 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 [facility] [address] [place] [address], [place] [address] 15 Jul 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 [facility] [address] [place] [address], [place] [address] Jul [facility]DC (current) use of 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 Z79.01 [facility] [address] [place] [address], [place] [address] 06 Jul High risk medication use Z79.899 and 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 [place] [address] [place] [address], [place] [address] 05 Jul [place] [address] [place] [address], [place] [address] 04 Jul [place] [address] [place] [address], [place] [address] Jul [place] [address] [place] [address], [place] [address] Jun 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 [place] [address] [place] [address], [place] [address] Jun [facility]DC (current) use of 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 Z79.01 [place] [address] [place] [address], [place] [address] Jun 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 [place] [address] [place] [address], [place] [address] 08 Jun [place] [address] [place] [address], [place] [address] 07 Jun [place] [address] [place] [address], [place] [address] May [facility] (current) use of 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 Z79.01 [place] [address] [place] [address], [place] [address] May Essential hypertension I10 ; Acquired hypothyroidism E03.9 and Pure hypercholesterolemia E78.[address] [place] [address] May [facility]DC (current) use of 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 Z79.01 [place] [address] [place] [address] May 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 ; Acquired hypothyroidism E03.9 ; Hypercholesterolemia E78.00 and Essential hypertension I10 [facility] [address] [place] [address] 07 May 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 [facility] [address] [place] [address] 03 May [facility]DC (current) use of 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 Z79.01 IMMUNIZATIONS No Known Immunizations SOCIAL HISTORY Never Assessed REASON FOR VISIT INR PLAN OF CARE VITAL SIGNS MEDICATIONS Unknown Medications RESULTS Name Result Date Reference Range INR (IN HOUSE) INR 3.3 1.10 - 3.30 PREVIOUS INR 1.6 CURRENT COUMADIN DOSE NEW COUMADIN DOSE Lot # [id number] Exp date 08/09/2019 PROCEDURES Procedure Date Ordered Result Body Site PROTHROMBIN TIME July 27, 2018 INSTRUCTIONS MEDICATIONS ADMINISTERED No Known Medications MEDICAL (GENERAL) HISTORY Type Description Date Medical History hypertension
--- OUTSIDE RECORDS SUMMARY | 2019-12-01 17:56 | XMS REPORT ---
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 451491656 Problem Hypercholesterolemia E78.00 Active 86565051 Problem Essential hypertension I10 Active 43929527 Problem Acquired hypothyroidism E03.9 Active 023257714 Problem Pure hypercholesterolemia E78.00 Acti ve [id number] ALLERGIES No Information ENCOUNTERS Encounter Location Date Diagnosis [address] [address] [address] Dec [facility] (current) use of 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 Z79.[address] [address] [address] [address] Nov [facility] (current) use of 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 Z79.[address] [address] [address] Oct Obstructive sleep apnea (adult) (pediatric) G47.[address] [address] Oct [facility] (current) use of 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 Z79.[address] [place] [address] 10 Oct HLD (hyperlipidemia) E78.5 and Fatigue R53.83 [place] [address] [place] [address] 07 Oct Fatigue R53.83 ; HLD (hyperlipidemia) E78.5 ; 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 and Obstructive sleep apnea (adult) (pediatric) G47.33 [place] [address] [place] [address] 04 Oct [facility] (current) use of 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 Z79.01 [place] [address] [place] [address], [place] [address] September [place] [address] [place] [address] September [place] [address] [place] [address] September [place] [address] [place] [address] September 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 [place] [address] [place] [address] Aug [facility] (current) use of 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 Z79.01 [place] [address] [place] [address], [place] [address] Aug [place] [address] [place] [address] Aug [facility] (current) use of 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 Z79.01 [place] [address] [place] [address] Aug 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 [place] [address] [place] [address] Aug [facility] (current) use of 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 Z79.01 [place] [address] [place] [address] Jul [facility] (current) use of 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 Z79.01 [place] [address] [place] [address] Jul 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 [place] [address] [place] [address] 19 Jul 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 [facility] [address] [place] [address], [place] [address] 15 Jul 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 [facility] [address] [place] [address], [place] [address] Jul [facility] (current) use of 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 Z79.01 [facility] [address] [place] [address], [place] [address] 06 Jul High risk medication use Z79.899 and 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 [place] [address] [place] [address], [place] [address] 05 Jul [place] [address] [place] [address], [place] [address] 04 Jul [place] [address] [place] [address], [place] [address] Jul [place] [address] [place] [address], [place] [address] Jun 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 [place] [address] [place] [address], [place] [address] Jun [facility] (current) use of 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 Z79.01 [place] [address] [place] [address], [place] [address] Jun 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 [place] [address] [place] [address], [place] [address] 08 Jun [place] [address] [place] [address], [place] [address] 07 Jun [place] [address] [place] [address], [place] [address] May [facility] (current) use of 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 Z79.01 [place] [address] [place] [address], [place] [address] May Essential hypertension I10 ; Acquired hypothyroidism E03.9 and Pure hypercholesterolemia E78.[address] [place] [address] May [facility] (current) use of 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 Z79.01 [place] [address] [place] [address] May 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 ; Acquired hypothyroidism E03.9 ; Hypercholesterolemia E78.00 and Essential hypertension I10 [facility] [address] [place] [address] May 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
[2019-12-01 18:23] VITALS: BP 116/44
== END 2019-12-01 19:08 | disposition short-term general hospital (02) ==
LOC: ER FS 15:03
DX: A41.9 Sepsis, unspecified organism (principal); I25.2 Old myocardial infarction; Z20.828 Contact with and (suspected) exposure to other viral communicable diseases; Z95.5 Presence of coronary angioplasty implant and graft; Z87.891 Personal history of nicotine dependence
CPT/HCPCS: 36415; 71045; 80053; 81000; 83605; 84484; 85007; 85027; 87040; 93005; 99284; U0002; 87635; 96374